=== PATIENT | male | born 1950 | race Caucasian/White ===

== ENCOUNTER 2017-07-04 17:21 | Inpatient (IN) | payer OTHER ==
[~2017-07-04] VITALS: Ht 175.2 cm; Wt 117.9 kg
--- NOTE | ~2017-07-04 | PR ---
[place], [place] PROGRESS NOTE NAME: INOCENCIA SNEED UNIT #: [id number] ROOM: 317 DOCTOR: JASON BERRIOS MD BIRTHDATE: [birth year] DOS: 07/07/2017 PSYCHIATRIC PROGRESS NOTE SUBJECTIVE: The patient seen and spoke with the staff. Per staff, the patient was very mean, irritable, demanding, and yells and curses at the nursing staff. He claims that no one is helping him. The patient was in the Sharon chair near the nursing station. He was irritable and angry. He kept on saying that no one wants to help him, but when I asked him what kind of help he needs, he was not able to answer any question. The patient initially refused to take his morning medication, but later on he agreed. MENTAL STATUS EXAMINATION: Irritable and angry male. Described his mood as "I do not know." Affect was labile, broad range. Thought process goal-directed with flight of ideas, loosening of association. Denied auditory or visual hallucination. No delusion or paranoia noted. Denied suicidal ideation, intent or plan. He also denied any homicidal ideation, intent or plan. PLAN: 1. I will start him on Depakote 750 mg twice a day. 2. Continue current medication. 3. Continue redirection. 4. Supportive care. JASON BERRIOS MD CM:PNTRANS [phone] JASON BERRIOS MD 07/08/17339 interface
--- NOTE | ~2017-07-04 | PR ---
[place], [place] PROGRESS NOTE NAME: INOCENCIA SNEED UNIT #: [id number] ROOM: 317 DOCTOR: NIA ARECHIGA DO BIRTHDATE: [birth year] DOS: 07/10/2017 CHIEF COMPLAINT: "I am doing and have a couple of questions." HISTORY OF PRESENT ILLNESS: This is a 66-year-old male who is being interviewed in the dining area after finishing breakfast. The patient expressed frustration that many people keep asking him questions. The patient also mentioned that he is trying to eat, but he is not eating well because he needs enlarged spoon to eat his meals. He has bad teeth. The patient is attempting to eat and drink, but it is harder for him because his utensils are not appropriate for him to be able to do those activities. The patient said he was very irritated because someone yesterday was making fun of him because the only thing he ate was perales, but he states that is the only thing he could eat because he is able to pick it up. When asked about where he previously lived, patient states that he used to live in [place], but however, he believes that he was kicked out of there and is now living on the streets. The patient says that he does not have any money anymore. Per nursing staff, the patient slept well and is now having continuous bowel movements with the medications we provided. Nursing also mentioned that on Sunday, they were able to have a conversation with the patient and he vocalized that he is not necessarily angry at his family or anyone in particular, but that he is angry about the situation he is in regards to his health. MENTAL STATUS EXAMINATION: The patient is alert and oriented with significant time gaps. Mood is frustrated, irritable and sometimes angry. There is no hypomania or jose, but the patient is also able to redirect after becoming frustrated, but he still continues to be irritable with multiple conversations. Short-term memory has some gaps. PLAN: Changes to the psychotropic regimen include increasing his Remeron to 22.5 mg at bedtime as well as continuing to check his valproic acid level. His valproic acid level is currently at 97.6 from lab work. We will continue to engage this individual in corey milieu activity as well as individual activity and returning to least restrictive environment when psychiatrically stable. Discharge will depend on medical and psychiatric status at that time. ADDENDUM Dr. Olivier 07/26/17 10:48 am: Above note reviewed. Agree with observations, recommendations, and overall treatment plan. Nia Arechiga DO [place], [place] PROGRESS NOTE NAME: INOCENCIA SNEED UNIT #: [id number] ROOM: 317 DOCTOR: NIA ARECHIGA DO BIRTHDATE: [birth year] ARON OLIVIER MD CM:KRISTEL [id number] NIA ARECHIGA DO 07/26/17 1052 KEDAR [email or web address].ELOYR
--- NOTE | ~2017-07-04 | PR ---
[place], [place] PROGRESS NOTE NAME: INOCENCIA SNEED UNIT #: [id number] ROOM: 317 DOCTOR: ARON DOUGHERTY MD BIRTHDATE: [birth year] DOS: 07/11/2017 CHIEF COMPLAINT: "Oh Dr. Dougherty, you are the head of the libertarian, thank you for the chocolate, it reminds me of Aleksandra's brownies that my mother used to make." SUMMARY OF THE VISIT: The patient was interviewed in the dining area where he sat watching television. He stopped and engaged readily in conversation. He was much more pleasant and cooperative and did talk at length to me about the candy bar that he was given yesterday and how much he enjoyed it and how much it reminded him of his childhood memories of having his mother make [place] bar brownies. He almost laughed and joked with me about how good that made him feel. Nurses report similar behavior and that yesterday he did have a much better day. Nurses also report some more sedation noted today than they had previous and had question whether or not he is receiving too much Depakote. MENTAL STATUS: He is alert and oriented with time gaps. Mood does seem to be strongly trending towards euthymia and affect is much more appropriate. There is no jose or hypomania. There are no overt auditory or visual hallucinations. He does have continued memory issues. PLAN: His valproic acid level obtained on 07/10/2017 was high normal at 97.6. I will lower his Depakote from 750 mg twice a day to 250 mg twice a day and 500 mg at bedtime, hoping to bring the level into the range of 60 or 80 and lessen some of the somnolence that we are seeing. We will continue to engage him in individual and corey milieu activity with the ultimate plan to return to the least restrictive environment when psychiatrically stable. ARON DOUGHERTY MD CM:PNTRANS [id number] ARON DOUGHERTY MD 07/12/17 0529 interface
--- NOTE | ~2017-07-04 | PR ---
[place], [place] [facility]GRESS [id number] #: [id number] ROOM: 317 DOCTOR: NIA ARECHIGA DO BIRTHDATE: [birth year] DOS: 07/06/2017 PSYCHIATRIC PROGRESS NOTE CHIEF COMPLAINT: "What is being done?" SUMMARY OF VISIT: This is a 66-year-old male who is being interviewed in the dining room. He appears agitated that he does not understand why he is here and what is being done for him and that no one is informing him of what they are doing. He states that yesterday someone wanted to listen to his heart and lungs and he said "there is nothing wrong with my heart and lungs, I don't see why I have to have those evaluated." We explained to him that the hospitalist team is working with us while we go and address his mood issues. We also are making sure his other needs are met as well. Patient states that nursing staff has not helped him get clean, that he would like a shower and a shave, that he is incontinent and he has not been changed in weeks, though patient has only been here a couple of days. Patient also states that he wants to know what medications he is getting and what has been changed. Patient was informed of what medications were stopped while he was here and what has been added or increased. Patient also was annoyed that he is not getting his insulin because he is not eating. When patient was mentioning family, he states that his controls everything; his currently has power of machine stapler for him. MENTAL STATUS EXAMINATION: Patient is alert and oriented. Mood is anxious, agitated. There seems to be some suspicious or paranoid behavior a little bit to the staff regarding his care. He has some gaps in his short term memory. PLAN: Increase his Risperdal 1 mg at bedtime. We have stopped his Xanax, his melatonin, his trazodone and . We will continue to monitor his paranoia and engage him in activity until he is psychiatric standpoint stable, then we will consider him for being returning to his [facility]. ADDENDUM Dr. Olivier 07/26/17 10:48 am: Above note reviewed. Agree with observations, recommendations, and overall treatment plan. Nia Arechiga DO [place], [place] PROGRESS NOTE NAME: INOCENCIA SNEED UNIT #: [id number] ROOM: [facility] DOCTOR: NIA ARECHIGA DO BIRTHDATE: [birth year] ARON OLIVIER MD CM:PNTRANS [phone] NIA ARECHIGA DO 07/26/17 1052 KEDAR MCKENNA.ELOYR
--- NOTE | ~2017-07-04 | PR ---
[place], [place] PROGRESS NOTE NAME: INOCENCIA SNEED UNIT #: [id number] ROOM: 317 DOCTOR: ARON OLIVIER MD BIRTHDATE: [birth year] DOS: 07/09/2017 CHIEF COMPLAINT: "Morning." SUMMARY OF THE VISIT: The patient was interviewed as he was resting in bed. He was eating his breakfast slowly. He engaged in brief superficial conversation and was somewhat dismissive. He denied any issues, but was upset that he was still in bed and wanted to be able to get out on to the unit. MENTAL STATUS: He remains alert and oriented with significant time gaps. Mood does seem to be rather terse and short and irritable. He redirects, however, eat more easily than he did this time last week. PLAN: We will discontinue the Haldol and Benadryl p.r.n. Check valproic acid level in the morning. Engage in individual and corey milieu activity, returning to the least restrictive environment when psychiatrically stable. ARON OLIVIER MD CM:PNTRANS [id number] ARON OLIVIER MD 07/09/17 2334 interface
--- NOTE | ~2017-07-04 | PR ---
[place], [place] PROGRESS NOTE NAME: INOCENCIA SNEED UNIT #: [id number] ROOM: 317 DOCTOR: JASON BERRIOS MD BIRTHDATE: [birth year] DOS: 07/08/2017 SUBJECTIVE: Patient seen and spoke with the nursing staff. Per staff, patient is still very irritable, argumentative. Reportedly, patient was very angry with his yesterday and made his to cry. Per staff, he is taking his medication. Reportedly, he had constipation, got magnesium citrate and medical team is following. Patient was on his bed. He was sleeping. It was very difficult for me to wake him up. He barely woke up and said that he is feeling better and did not tell me anything else. MENTAL STATUS EXAMINATION: Patient was pleasant and cooperative. Described his mood as "better." Affect was sleepy. He denied auditory or visual hallucination. No delusion or paranoia noted. He denied suicidal ideation, intent or plan. He also denied homicidal ideation, intent or plan. PLAN: 1. Continue current medications and care. 2. Continue redirection. 3. Supportive care. 4. Final medication management and discharge plan by the regular team. JASON BERRIOS MD CM:PNTRANS [id number] JASON BERRIOS MD 07/09/17 1607 interface
--- NOTE | ~2017-07-04 | DS ---
[place], [place] DISCHARGE SUMMARY NAME: INOCENCIA SNEED UNIT #: [id number] ROOM: 317 DOCTOR: ARON OLIVIER MD BIRTHDATE: [birth year] DOS: 07/12/2017 CHIEF COMPLAINT: "They think that I am paranoid. They are not meeting my needs. I need to get things straight." HISTORY OF PRESENT ILLNESS: This is a 66-year-old white male who is a resident of [facility] in [place], [place]. The patient has had a significant change in his mental status since being admitted there. He has become both verbally and physically aggressive towards staff and has been making increased threats towards them. He has been increasingly paranoid and feels that staff is deliberately out to get him and have deliberately been not meeting his needs, so that he will be hurt. The patient reports that he has been under a lot of stress and anxiety lately and has not been himself. 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 Most recently, he has had a psychiatric hospitalization on the behavioral health care unit at [facility] for similar behaviors. He is now admitted to the behavioral health care unit at [facility] to rule out further organic factors, to stabilize on medication with the plan to return to the least restrictive environment when psychiatrically stable. PAST MEDICAL HISTORY: Remarkable for recent CVA with residual left-sided hemiplegia, COPD, dementia, DVT, hypertension, hyperlipidemia, diabetes, macrocytic anemia, peripheral vascular disease, and major depression recurrent. SOCIAL HISTORY: He does not smoke cigarettes, consume alcohol or use illicit drugs. STRENGTHS: He has good verbal skills. He has a supportive environment and a supportive living situation. SUMMARY OF HOSPITAL COURSE: The patient was admitted to the unit where he was started on Remeron 15 mg at bedtime as well as Risperdal 0.5 mg at bedtime to decrease his paranoia and mood lability. Additionally, he was continued on his Namenda 10 mg twice daily and Exelon patch 13.3 mg a day. Because there was a significant mood lability component and he shifted very quickly from being fairly happy to being extremely irritable, short fused and agitated, Depakote was added by Dr. Ruiz during his coverage time at a dose of 750 mg twice daily. Risperdal was gradually increased from the 0.5 mg at bedtime to 1 mg at bedtime to further aid sleep and stabilize his mood while decreasing paranoia. A valproic acid level taken several days after initiation of treatment, was found to be high therapeutic at 97.5, so the dose was lowered from 1500 mg a day down to 1000 mg a day given 250 mg twice daily and 500 mg at night. With this combination of Remeron, Risperdal, and Depakote along with the Exelon patch and Namenda, the patient improved dramatically. He became much more pleasant and cooperative. He was much more forward thinking in his plans wanting to rehab and get back as much functionality as he possibly could. The mood lability that was so present upon admission as was the paranoia both dissipated in frequency [place], [place] DISCHARGE SUMMARY NAME: INOCENCIA SNEED UNIT #: [id number] ROOM: [facility] DOCTOR: ARON OLIVIER MD BIRTHDATE: [birth year] and intensity. He tolerated the current medication regimen well exhibiting no extrapyramidal symptoms, tardive dyskinesia, sedation or somnolence. The patient was discharged then to [facility] for further rehabilitation. MENTAL STATUS AT DISCHARGE: The patient is alert and oriented with some time gaps. Mood does seem to be strongly trending towards euthymia. Affect is much more appropriate. There is no jose or hypomania. There are no gross psychotic symptoms and the paranoia that was present has dissipated. He does process slowly at times and short term memory has gaps. FINAL DIAGNOSES UPON DISCHARGE: Major depression, recurrent with psychotic features and dementia, not otherwise specified. PLAN: His prescriptions have been printed and will be sent with him. He will be admitted to [facility] where I will follow him psychiatrically. He was discharged medically stable, psychiatrically stable and his biopsychosocial needs are adequately being met by the facility at large as well as by his family members. ARON OLIVIER MD CM:GENNA [phone] ARON OLIVIER MD 07/12/17 1201 interface
--- NOTE | ~2017-07-04 | WRIGHTHP ---
[place], [place] PATIENT HISTORY AND PHYSICAL EXAM NAME: INOCENCIA SNEED UNIT #: [id number] ROOM: 317 DOCTOR: ARON OLIVIER MD BIRTHDATE: [birth year] DOS: 07/05/2017 CHIEF COMPLAINT: "They think that I am paranoid. They are not meeting my needs. I needed to get things straight." HISTORY OF PRESENT ILLNESS: This is a 66-year-old male who is a resident of [facility] in [place], [place]. The patient has had a significant change in mental status since he has been admitted there. He has been verbally and physically aggressive towards staff and has been making increased threats towards them. He has been verbally aggressive towards staff and others and he has been increasingly paranoid, but does admit he has been under lots of stress and anxiety lately and is per his report not been himself. 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 Most recently, he has had a psychiatric hospitalization on the Behavioral Health Care Unit at [facility] for similar behaviors. He is [facility] to rule out any further organic factors, to stabilize on medication, returning to the least restrictive environment when psychiatrically stable. PAST MEDICAL HISTORY: Remarkable for recent cerebrovascular adverse event, COPD, dementia, DVT, hemiplegia, hypertension, hyperlipidemia, diabetes, macrocytic anemia, peripheral vascular disease, and major depression, recurrent. From a social standpoint, he does not smoke cigarettes, consume alcohol or use illicit drugs. STRENGTHS: He has got good verbal skills. He has a supportive family and a supportive living environment. MENTAL STATUS: He is alert and oriented with some time gaps. Mood does seem to be rather depressed with anxious overtones. He needs a lot of support and reassurance. There is some paranoia present and some suspiciousness of staff. He does process at times slowly. He does exhibit some gaps in short term memory. DIAGNOSES: Major depression, recurrent with psychotic features and dementia, not otherwise specified. PLAN: I have started him on Remeron 15 mg at bedtime. I will add Risperdal 0.5 mg at bedtime to decrease some of the mood lability, agitation and paranoia. I will continue his Namenda at 10 mg b.i.d. and Exelon patch 13.3 mg a day. We will continue to monitor for his paranoia and also engage him in individual and corey milieu activity with the plan at this point to return back to [facility] or the least restrictive environment. [place], [place] PATIENT HISTORY AND PHYSICAL EXAM NAME: SNEEDINOCENCIA Jerzy UNIT #: [id number] ROOM: [facility] DOCTOR: ARON OLIVIER MD BIRTHDATE: [birth year] ARON OLIVIER MD CM:HISPHYS:PATIENT HISTORY AND PHYSICAL EXAMINATION [phone] ARON OLIVIER MD 07/05/17 1054 interface
[2017-07-04 17:44] VITALS: BP 145/93
[2017-07-04 17:45] LABS: BILIRUBIN NEGATIVE (NEGATIVE); BLOOD 3+ (NEGATIVE); CLARITY CLOUDY (CLEAR); COLOR YELLOW (YELLOW); GLUCOSE NEGATIVE (NEGATIVE); KETONE TRACE (NEGATIVE); LEUKO ESTERASE 2+ (NEGATIVE); NITRITE POSITIVE (NEGATIVE); SPECIFIC GRAVITY 1.025 (1.005-1.030); UROBILINOGEN 0.2 E.U./dl (0.2-1.0)
[2017-07-04 18:04] LABS: BACTERIA 1+; MUCOUS 1+; WBC TNTC wbc/hpf (0-5)
[2017-07-04 18:07] LABS: URINE AMPHETAMINES < 1000 (1000ng/ml); URINE BARBITURATES < 200 (200ng/ml); URINE BENZODIAZEPINES > 200 (200ng/ml); URINE CANNABINOIDS (THC) < 50 (50ng/ml); URINE COCAINE < 300 (300ng/ml); URINE METHADONE < 300 (300ng/ml); URINE OPIATES > 300 (300ng/ml)
[2017-07-04 18:10] LABS: URINE PHENCYCLIDINE < 25 (25ng/ml)
[2017-07-04 18:20] LABS: BASO % 0.5 % (0.0-1.0); EOS # 0.2 10*3/uL (0.0-0.4); EOS % 3.2 % (1.0-4.0); HEMOGLOBIN 12.6 g/dl (14.0-18.0); LYMPH # 1.8 10*3/uL (1.3-4.4); LYMPH % 29.5 % (27.0-41.0); MEAN CELL VOLUME 101.5 fl (80.0-94.0); MEAN CORPUSCULAR HGB CONC 31.5 g/dl (33.0-37.0); MEAN PLATELET VOLUME 9.4 fl (9.6-12.3); MONO # 0.5 10*3/uL (0.1-1.0); NEUT # 3.5 10*3/uL (2.3-7.9); NEUT % 58.6 % (47.0-73.0); PLATELET COUNT AUTOMATED 232 10*3/uL (130-400); RED BLOOD COUNT 3.94 10*6/uL (4.50-5.90); RED CELL DISTRI WIDTH 13.3 % (0-14.5)
[2017-07-04 18:37] LABS: ALBUMIN 3.6 gm/dl (3.1-4.5); BUN 11 mg/dl (7-24); CHLORIDE 104 mmol/L (98-107); CREATININE 0.87 mg/dL (0.70-1.30); POTASSIUM 3.4 mmol/L (3.5-5.1); SGOT/AST 29 IU/L (3-35); SGPT/ALT 16 U/L (12-78); SODIUM 142 mmol/L (136-145); TOTAL PROTEIN 8.2 gm/dL (6.4-8.2)
[2017-07-04 18:38] LABS: ACETAMINOPHEN (TYLENOL) < 2.0 ug/ml (10-30); ALKALINE PHOSPHATASE 69 U/L (45-117); ETHYL ALCOHOL < 3.0 mg/dl (<3)
[2017-07-04] MEDS ORDERED: ASPIRIN CHEWABL81 MG PO (20:20)
[2017-07-04] MEDS ORDERED: DEXILANT30 MG PO (20:21)
[2017-07-04] MEDS ORDERED: EXEL13.31 T (20:22)
[2017-07-04] MEDS ORDERED: NAMENDA-28 PO (20:25)
[2017-07-04] MEDS ORDERED: MELATONIN3 MG PO (20:25)
[2017-07-04] MEDS ORDERED: NASACORT16.9 ML NAS (20:31)
[2017-07-04] MEDS ORDERED: POTASSIUM CHLO10 ME4 PO (20:33)
[2017-07-04] MEDS ORDERED: SINGULAIR10 M1 PO (20:34)
[2017-07-04] MEDS ORDERED: REMERON SOLTAB15 MG PO (20:34)
[2017-07-04] MEDS ORDERED: XANAX0.25 MG PO (20:36)
[2017-07-04] MEDS ORDERED: VITAMIN D31000 UNIT PO (20:36)
[2017-07-04] MEDS ORDERED: ZYRTEC10 M3 PO (20:37)
[2017-07-04] MEDS ORDERED: COLACE100 MG PO (20:38)
[2017-07-04] MEDS ORDERED: CHOLEST OFF PL450 MG PO (20:38)
[2017-07-04] MEDS ORDERED: LASIX40 MG PO (20:41)
[2017-07-04] MEDS ORDERED: ELIQUIS5 M1 PO (20:41)
[2017-07-04] MEDS ORDERED: NOVOLIN 70100 UNIT/1 SQ (20:44)
[2017-07-04] MEDS ORDERED: TUSSIN DM COUG118 ML PO (20:47)
[2017-07-04] MEDS ORDERED: TYLENOL EXTRA500 MG PO (20:48)
[2017-07-04] MEDS ORDERED: NORCO 7.5-3251 EACH PO (20:52)
[2017-07-04] MEDS ORDERED: NAMENDA10 MG PO (21:05)
[2017-07-04 23:43] VITALS: BP 145/93
[2017-07-05 01:15] VITALS: BP 126/69
[2017-07-05 07:10] LABS: THYROID STIM HORMONE (HS) 2.63 uIU/ml (0.358-4.75)
[2017-07-05 08:03] VITALS: BP 132/69
[2017-07-05 08:31] LABS: VITAMIN D, 25-HYDROXY 33.8 ng/mL (30-100)
[2017-07-05 20:00] VITALS: BP 109/74
[2017-07-06 08:47] VITALS: BP 136/63
[2017-07-06 08:48] VITALS: BP 136/63
[2017-07-06 19:33] VITALS: BP 127/72
[2017-07-07 07:44] VITALS: BP 148/76
[2017-07-07 20:00] VITALS: BP 130/80
[2017-07-08 07:48] VITALS: BP 136/63
[2017-07-08 20:00] VITALS: BP 145/78
[2017-07-09 08:17] VITALS: BP 132/75
[2017-07-09 20:00] VITALS: BP 118/72
[2017-07-10 08:04] VITALS: BP 130/76
[2017-07-10 19:41] VITALS: BP 117/57
[2017-07-11 07:48] VITALS: BP 130/62
[2017-07-11 20:12] VITALS: BP 118/68
[2017-07-12 07:54] VITALS: BP 130/68
[2017-07-12] MEDS ORDERED: EXELON13.3 MG/21 T (10:40)
[2017-07-12] MEDS ORDERED: DIVALPROEX SOD250 MG PO (10:40)
[2017-07-12] MEDS ORDERED: Vitamin D PO (10:40)
[2017-07-12] MEDS ORDERED: B121000 MCG/1 IM (10:40)
[2017-07-12] MEDS ORDERED: MEMANTINE HCL10 MG PO (10:40)
[2017-07-12] MEDS ORDERED: MIRTAZAPINE45 MG PO (10:40)
[2017-07-12] MEDS ORDERED: RISPERIDONE1 MG PO (10:40)
[2017-07-12] MEDS ORDERED: DIVALPROEX SOD500 MG PO (10:40)
[2017-07-12] MEDS ORDERED: Humalog SQ (10:56)
[2017-07-12] MEDS ORDERED: NORCO 7.5-3251 EACH PO (10:57)
== END 2017-07-12 13:07 | disposition other institution (70) | DRG 885 ==
LOC: ED 17:21 → 3N 18:58 → EDHOLD 18:58 → 3N 19:32
PROVIDERS: Physician Assistant; Psychiatry & Neurology Psychiatry
DX: F33.3 Major depressive disorder, recurrent, severe with psychotic symptoms (principal); E11.51 Type 2 diabetes mellitus with diabetic peripheral angiopathy without gangrene; I69.354 Hemiplegia and hemiparesis following cerebral infarction affecting left non-dominant side; N39.0 Urinary tract infection, site not specified; F23 Brief psychotic disorder; F03.90 Unspecified dementia, unspecified severity, without behavioral disturbance, psychotic disturbance, mood disturbance, and anxiety; D53.9 Nutritional anemia, unspecified; E87.6 Hypokalemia; I10 Essential (primary) hypertension; E78.5 Hyperlipidemia, unspecified; F43.10 Post-traumatic stress disorder, unspecified; F41.9 Anxiety disorder, unspecified; K59.00 Constipation, unspecified; B96.4 Proteus (mirabilis) (morganii) as the cause of diseases classified elsewhere; R31.9 Hematuria, unspecified; J44.9 Chronic obstructive pulmonary disease, unspecified; Z86.718 Personal history of other venous thrombosis and embolism; Z88.8 Allergy status to other drugs, medicaments and biological substances; Z91.040 Latex allergy status; Z79.899 Other long term (current) drug therapy; Z79.82 Long term (current) use of aspirin; Z79.4 Long term (current) use of insulin